=== PATIENT | female | born 1965 | race Two or more races ===

== ENCOUNTER 2024-12-09 02:13 | Inpatient (IN) | payer OTHER ==
[~2024-12-09] VITALS: Ht 127 cm; Wt 66.6 kg
--- NOTE | 2024-12-09 03:05 | DVH ---
CLINICAL INDICATION: fall TECHNIQUE: XY R FOOT 2 VIEW XRAY Comparison: None FINDINGS/IMPRESSION: : Mildly displaced obliquely oriented distal 5th metatarsal fracture. Soft tissue elements are grossly intact and normal in appearance.
--- NOTE | 2024-12-09 04:04 | ED.PDOC ---
History of Present Illness HPI Comments 59-year-old female came to the ER stating that she twisted her right foot about 3 hours prior to coming to the ER. Complaining of right foot pain unable to bear weight. Denies direct trauma. Denies any other symptoms. Chief Complaint: Lower Extremity Time Seen by MD: 02:19 Reviewed Notes: Nurses Notes, Medications, Allergies Allergies: Coded Allergies: NO KNOWN ALLERGIES (Unverified , 12/09/24) Information Source: Patient Mode of Arrival: Ambulatory Severity: Moderate Timing: Hours Duration: Since onset Past Medical History PAST MEDICAL HISTORY: Denies Surgical History: Denies all surgeries STORE MANAGER History: No Pertinent STORE MANAGER History Social History Smoker: Non-Smoker Alcohol: Denies ETOH Use Drugs: Denies Drug Use Constitutional: denies: chills, diaphoresis, fatigue, fever, malaise, sweats, weakness, others EENTM: denies: blurred vision, double vision, ear bleeding, ear discharge, ear drainage, ear pain, ear ringing, eye pain, eye redness, hearing loss, mouth pain, mouth swelling, nasal discharge, nose bleeding, nose congestion, nose pain, photophobia, tearing, throat pain, throat swelling, voice changes, others Respiratory: denies: cough, hemoptysis, orthopnea, SOB at rest, shortness of breath, SOB with excertion, stridor, wheezing, others Cardiovascular: denies: chest pain, dizzy spells, diaphoresis, Dyspnea on exertion, edema, irregular heart beat, left arm pain, lightheadedness, palpitations, PND, syncope, others Gastrointestinal: denies: abdomen distended, abdominal pain, blood streaked bowels, constipated, diarrhea, dysphagia, difficulty swallowing, hematemesis, melena, nausea, poor appetite, poor fluid intake, rectal bleeding, rectal pain, vomiting, others Genitourinary: denies: abnormal vagina bleeding, burning, dyspareunia, dysuria, flank pain, frequency, hematuria, incontinence, pain, , vagina discharge, urgency, others Neurological: denies: dizziness, fainting, headache, left sided numbness, left sided weakness, numbness, paresthesia, pre-existing deficit, right sided numbness, right sided weakness, seizure, speech problems, tingling, tremors, we akness, others Musculoskeletal: reports: joint pain (Right foot); denies: back pain, gout, joint swelling, muscle pain, muscle stiffness, neck pain, others Integumetry: denies: bruises, change in color, change in hair/nails, dryness, laceration, lesions, lumps, rash, wounds, others Allergic/Immunocompromised: denies: Difficulty Healing, Frequent Infections, Hives, Itching, others Hematologic/Lymphatic: denies: anemia, blood clots, easy bleeding, easy bruising, swollen glands, others Endocrine: denies: excessive hunger, excessive sweating, excessive thirst, excessive urination, flushing, intolerance to cold, intolerance to heat, u nexplained weight gain, unexplained weight loss, others Psychiatric: denies: anxiety, bipolar disorder, depression, hopeless, panic disorder, schizophrenia, sleepless, suicidal, others Physical Exam General Appearance: Moderate Distress HEENT: Normal ENT Inspection, Pharynx Normal, TMs Normal Neck: Full Range of Motion, Non-Tender, Normal, Normal Inspection Respiratory: Chest Non-Tender, Lungs Clear, No Accessory Muscle Use, No Respiratory Distress, Normal Breath Sounds Cardiovascular: No Edema, No JVD, No Murmur, No Gallop, Normal Peripheral Pulses, Regular Rate/Rhythm Breast Exam: Deferred Gastrointestinal: No Organomegaly, Non Tender, No Pulsatile Mass, Normal Bowel Sounds, Soft Genitalia: Deferred Pelvic: Deferred Rectal: Deferred Extremities: Tender (right foot) Musculoskeletal : Apperance: Normal Neurologic: Alert, No Motor Deficits, No Sensory Deficits Cerebellar Function: NOT DONE Reflexes: NOT DONE Skin: Dry, Normal Color, Warm Peripheral Pulses: 3+ Radial (R), 3+ Radial (L) Lymphatic: No Adenopathy Was a procedure done? Was a procedure done?: No Differential Dx Considerations may include: fracture muscle strain X-Ray, Labs, Meds, VS Vital Signs Date Time Temp Pulse Resp B/P (MAP) Pulse Ox O2 Delivery O2 Flow Rate FiO2 12/09/24 02:16 98.1 105 18 113/74 96 98.1 Patient alert. Complaining of right foot pain. Swelling of the right foot on examination. Vitals stable. Answering questions. Good pulses. Good skin color. X-ray of the right foot does show fracture. Placed a splint. Was given prescription of [place]. Explained to the patient. Was told to follow up with her primary care physician. Was told to come back if there is any problem. Time of 1ST Reevaluation: 04:02 Reevaluation 1ST: Unchanged Patient Education/Counseling: Diagnosis, Treatment, Prognosis, Need For Follow Up Family Education/Counseling: No Family Present SEPSIS Sepsis Screen Date sepsis recognized/suspect: Dec 09, 2024 Time Sepsis recognized/suspect: 215 Recent Procedure: No On Antibiotic Therapy: No Respiratory Rate >20: No Heart Rate >90: No Temp<36 C (96.8 F) or >38.3 C: No SBP <90 or MAP <65 mmHG: No New Acute Mental Status Change: No Is the patient on CPAP, BIPAP,: No Physician Orders R Foot 2 View Xray (12/09/24 02:29) Vital Signs Date Time Temp Pulse Resp B/P (MAP) Pulse Ox O2 Delivery O2 Flow Rate FiO2 12/09/24 02:16 98.1 105 18 113/74 96 98.1 Departure 1 Departure Time of Disposition: 04:04 Impression: Primary Impression: Foot fracture, right Qualified Codes: S92.901A - Unspecified fracture of right foot, initial encounter for closed fracture Disposition: 01 HOME / SELF CARE / HOMELESS Condition: Good e-Prescriptions Hydrocodone-Acetaminophen (Hydrocodone Bitartrate/AC 5-325 mg) 1 Tab Tab 1 TAB PO DAILY for 5 Days, #5 TAB Prov: SLIME ZIMMER MD 12/09/24 Discharged With: Self Critical Care Note Critical Care Time?: No Stability Stability form required: No Heart Score Heart Score: Heart Score Response (Comments) Value History N/A 0 EKG N/A 0 Age N/A 0 Risk Factors N/A 0 Troponin N/A 0 Total 0 SLIME ZIMMER MD Dec 09, 2024 04:04
[2024-12-09] MEDS ORDERED: HYDR-4902 PO (04:06)
[2024-12-09] MEDS: HYDROcodone-ACET 10/325MG TAB PO ONE (04:45)
--- NOTE | 2024-12-09 06:17 | DVHHPRES ---
History of Present Illness Resident Creating Document: JOSH NAVARRO RESDIENT History of Present Illness This is a 59-year-old female with past medical history of diabetes type 2 came to the hospital due to intractable right foot pain. She also reports of nausea. Per patient, she slipped while she was walking and subsequently developed pain at the level of 2 L fingers of right foot. He denies dizziness, blurry vision, chest pain, shortness of breaths, or fall/loss of conscious. PMHx: Diabetes type 2 PSHx: C-sections Social history: Denies smoking, or any other drug use Home medication: Metformin, lisinopril, glipizide, (patient use to more drugs, does not remember the name) Allergic history: No known allergy Patient seen and examined at bedside. Patient is complaining of intractable right foot pain. Review of Systems Allergies: Coded Allergies: NO KNOWN ALLERGIES (Unverified , 12/09/24) Exam Vital Signs Vital Signs Date Time Temp Pulse Resp B/P (MAP) Pulse Ox O2 Delivery O2 Flow Rate FiO2 12/09/24 04:48 87 16 96 Room Air 12/09/24 04:48 98.2 115/78 (90) 98.2 Exam General Appearance: Alert, Oriented X3, Cooperative, No acute distress HEENT: Atraumatic, PERRLA, EOMI, Mucous membrane moist/pink Respiratory: Clear to auscultation, Normal air movement Cardiovascular: Regular rate, Normal S1, Normal S2, No murmurs, no chest wall tenderness Abdominal: Normal bowel sounds, Soft, No tenderness, No hepatospenomegaly, No masses Extremities: Right foot at the level of lateral fingers are swollen and tender, distal pass and sensations are intact Skin: No rashes, No breakdown, No significant lesion Neuro: Normal gait, Normal speech, Strength at 5/5 X4 ext, Normal tone, Sensation intact, Cranial nerves 3-12 NL, Reflexes 2+ Psych/Mental Status: Mental status NL, Mood NL SEPSIS Sepsis Screen Date sepsis recognized/suspect: Dec 09, 2024 Time Sepsis recognized/suspect: 215 Recent Procedure: No On Antibiotic Therapy: No Respiratory Rate >20: No Heart Rate >90: No Temp<36 C (96.8 F) or >38.3 C: No SBP <90 or MAP <65 mmHG: No New Acute Mental Status Change: No Is the patient on CPAP, BIPAP,: No Physician Orders R Foot 2 View Xray (12/09/24 02:29) Splints (12/09/24 ) Admit (12/09/24 05:56) Code Status (12/09/24 05:56) Vital Signs .PER UNIT PROTOCOL (12/09/24 05:56) Review Orders With Adm. (12/09/24 05:56) Notify Md Of Changes From Base (12/09/24 05:56) Advance Directive (12/09/24 05:56) Patient Condition (12/09/24 05:56) Allergies (12/09/24 05:56) Vital Signs Date Time Temp Pulse Resp B/P (MAP) Pulse Ox O2 Delivery O2 Flow Rate FiO2 12/09/24 04:48 87 16 96 Room Air 12/09/24 04:48 98.2 87 16 115/78 (90) 96 98.2 12/09/24 02:16 98.1 105 18 113/74 96 98.1 Medications Medications Dose Ordered Sig/Yessica Route Start Time Stop Time Status Last Admin Dose Admin Acetaminophen/ Hydrocodone Bitart 1 tab ONCE ONCE PO 12/09/24 02:30 12/09/24 02:31 DC 12/09/24 04:45 1 TAB Assessment/Plan Assessment/Plan Right foot intractable pain due to distal 5th metatarsal fracture Diabetes type 2 Morbid obesity X-ray shows, mildly displaced obliquely oriented distal 5th metatarsal fracture Plan/recommendation Pain control, acetaminophen on IV ketorolac Zofran for nausea and vomiting Insulin Check Hb A1c consulted orthopedics DIET: diabetic diet GI PROPHYLAXIS:: Protonix BOWEL REGIMEN: Colace CODE STATUS: Goal of care discussed for more than 18 minutes, full code DISPOSITION: Med/surge Patient's status and plan discussed with the patient. Case discussed with Dr. Ashley. Plan discussed with: Patient, Other (RN) My Orders Orders - JOSH NAVARRO RESDIZACHARY Procedure Category Date Status Time Admit ADMIT 12/09/24 Transmitted 05:56 Code Status CODE 12/09/24 Transmitted 05:56 Vital Signs WARD 12/09/24 In Process 05:56 Review Orders With WARD 12/09/24 In Process Adm 05:56 Notify Of Changes WARD 8/10/25 In Process From Base 05:56 Advance Directive WARD 12/09/24 In Process 05:56 Patient Condition ORDERS 12/09/24 Transmitted 05:56 Allergies WARD 12/09/24 In Process 05:56 Date of Service: Dec 09, 2024 Billing Provider: MARIA ESTHER ASHLEY MD Common Visit Codes: [id number] INP/OBS CARE (HIGH) ROMARIOROSEVIKTORIA MARTINEZFRACISCO RESDIZACHARY Dec 09, 2024 06:17 MARIA ESTHER ASHLEY MD Dec 11, 2024 07:53
[2024-12-09 07:37] LABS: INR 1.0 (0.9-1.15); Prothrombin Time 10.6 sec (9.3-11.8)
[2024-12-09] MEDS: KETOROLAC TROMETH 30 MG/ML 1ML VIAL IV ONE (08:24)
[2024-12-09] MEDS: LISINOPRIL 5 MG TAB PO SCH (10:00)
--- NOTE | 2024-12-09 12:26 | DVHPN2 ---
Reviewed: Care Plan, H&P, Labs, Medications, Previous Orders, Radiology Changes from previous H/P or p: No Changes Objective Vitals Vital Signs Date Time Temp Pulse Resp B/P (MAP) Pulse Ox O2 Delivery O2 Flow Rate FiO2 12/09/24 10:00 106/60 12/09/24 07:53 97.6 78 16 96 97.6 12/09/24 04:48 Room Air Medications Current Medications Medications Dose Ordered Sig/Yessica Route Start Time Stop Time Status Last Admin Dose Admin Ketorolac Tromethamine 15 mg Q6HPRN PRN IV 12/09/24 12:00 12/14/24 11:59 Lisinopril 2.5 mg DAILY PO 12/09/24 10:00 Acetaminophen 650 mg Q6HR PO 12/09/24 12:00 Laboratory Results Coagulation Test 12/09/24 06:54 Prothrombin Time 10.6 sec (9.3-11.8) Prothrombin Time INR 1.00 (0.9-1.15) HgA1c, TSH Test 12/09/24 06:54 Hemoglobin A1c 10.2 % A1C (<5.7) H Labs and/or images reviewed: Labs reviewed by me, Image(s) reviewed by me Assessment/Plan Assessment/Plan Acute right 5th metatarsal fractures secondary to trauma, consult for orthopedic Dr. Tapia Diabetes type 2: Insulin sliding scale Time spent 40 minutes Plan discussed with: Patient Date of Service: Dec 09, 2024 Billing Provider: JESSE HEBERT MD Common Visit Codes: [id number] INP/OBS CARE(HIGH) JESSE HEBERT MD Dec 09, 2024 12:26
[2024-12-09] MEDS: ACETAMINOPHEN 325 MG TAB PO SCH (12:51)
[2024-12-09 20:23] LABS: Urine Protein, UAD Negative (Negative)
[2024-12-09 20:26] LABS: Amphetamine Screen, Urine Neg (NEGATIVE); Barbiturate Scree,Urine Neg (NEGATIVE); Benzodiazephine Screen, Urine Neg (NEGATIVE); Cocaine Screen, Urine Neg (NEGATIVE); Opiate Scree,Urine Neg (NEGATIVE); Phencyclidine Screen, Urine Neg (NEGATIVE)
[2024-12-09 20:27] LABS: Cannabinoid Screen, Urine Neg (NEGATIVE)
[2024-12-09 22:13] VITALS: PULSE 69; RESP 18; O2SAT 95
[2024-12-09] MEDS: KETOROLAC TROMETH 30 MG/ML 1ML VIAL IV PRN (22:38)
[2024-12-09] MEDS ORDERED: LISI-275 PO (23:29)
[2024-12-09] MEDS ORDERED: METF-371 PO (23:29)
[2024-12-09] MEDS ORDERED: GLIP10TA9 PO (23:29)
[2024-12-10] VITALS (8 sets, daily range): BP systolic 116–164; BP diastolic 67–94; PULSE 60–72; RESP 16–18; TEMP 97.8–98.3; O2SAT 92–96
[2024-12-10] MEDS ORDERED: DEXTROSE (50%) 50ML SYRG IV PRN (03:15)
[2024-12-10] MEDS: ACCU-CHEK COMFORT CURVE STRIP VI SCH (05:18)
[2024-12-10] MEDS: InsuLIN REG 1unit/0.01ml Soln (100units/ml) SC SCH (05:18)
[2024-12-10] MEDS: INSULIN LANTUS (GLARGINE) 1 /0.01ml (100units/ml) SC ONE (06:39)
--- NOTE | 2024-12-10 09:05 | DVHPNRES ---
Progress Note Subjective Review of Systems Ever Onofre is a 59-year-old female with past medical history of Previous hospitalization: PMHx: PSHx: Family history: Social history: Home medication: glipizide, lisinopril, metformin, fenofibrate, pioglitazone, atorvastatin Allergic history: ROS Constitutional: Denies weight loss, fever and chills. HEENT: Denies changes in vision and hearing. Respiratory: Denies shortness of breath and cough Cardiovascular: Denies chest discomfort or palpitations GI: Denies abdominal pain, nausea, vomiting and diarrhea. : Denies dysuria and urinary frequency. Musculoskeletal: Denies myalgias and joint pain Skin: Denies rash and pruritus. Neurological: Denies dizziness, headache, vision or hearing problems She was examined at bedside today. Vitals WNL. Objective vital signs Vital Sign Date Time Temp Pulse Resp B/P (MAP) Pulse Ox O2 Delivery O2 Flow Rate FiO2 12/10/24 05:00 98.1 60 16 126/81 (96) 92 98.1 12/09/24 22:13 Room Air* 0 21 Total Intake and Output 12/09/24 12/09/24 12/10/24 15:00 23:00 07:00 Intake Total 200 ml Balance 200 ml medications Current Medications Medications Dose Ordered Sig/Yessica Route Start Time Stop Time Status Last Admin Dose Admin Ketorolac Tromethamine 15 mg Q6HPRN PRN IV 12/09/24 12:00 12/14/24 11:59 12/10/24 05:23 15 MG Lisinopril 2.5 mg DAILY PO 12/09/24 10:00 Acetaminophen 650 mg Q6HR PO 12/09/24 12:00 12/09/24 18:58 650 MG Diagnostic Test (Pha) 1 strip Q6HR 12/10/24 06:00 12/10/24 05:18 1 STRIP Insulin Human Regular Q6HR SC 12/10/24 06:00 12/10/24 05:18 9 UNITS Dextrose 50 ml UD PRN IV 12/10/24 03:15 Examination Physical examination General: Patient alert and oriented in person, place and time. Patient following commands. HEENT: Normocephalic, atraumatic, moist mucous membranes Respiratory/pulmonary: Clear lungs bilaterally, vesicular murmurs present in almost all lung cadena, no associated crackles or wheezes. Cardiovascular: Normal heart sounds S1 and S2 with no associated murmurs Abdomen: Abdomen nondistended, there is no pain to palpation in any of the abdominal quadrants, no palpable masses. Extremities: There is no peripheral edema present at the lower extremities. Peripheral Pulses: 3+ Radial (R). 3+ Radial (L). 3+ Dorsalis pedis (R). 3+ Dorsalis pedis(L) Skin: No rashes or pruritus, there is no sacral edema present at this time. Neurological: Intact cranial nerves with no focal neurologic deficits Problem List/Assessment/Plan Problem List/Assessment/Plan X-ray foot shows: Mildly displaced obliquely oriented distal 5th metatarsal fracture. Soft tissue elements are grossly intact and normal in appearance. Pain management Diabetes mellitus, uncontrolled A1c 10.2 Sliding scale insulin ? Restart Atorvastatin Essential hypertension Continue lisinopril DIET: Regular Liquid CODE STATUS: Goals of care discussed with patient at bedside for more than 25 minutes. Full code DISPOSITION: Med/surge Patient's status and plan discussed with the patient. Case discussed with Dr. Barroso. My Orders My Orders Orders - ANA REYES RESIDENT Procedure Category Date Status Time Complete Blood Count LAB 12/10/24 Transmitted 09:04 Comprehensive LAB 12/10/24 Transmitted Metabolic Panel 09:04 ANA REYES Dec 10, 2024 09:05
[2024-12-10 10:28] LABS: Hematocrit 33.3 % (36.0-46.0); Hemoglobin 10.9 g/dL (12.2-16.2); Mean Corpuscular Hemoglobin 26.6 pg (28.0-32.0); Mean Corpuscular Volume 81.4 fL (80.0-100.0); Nucleated Red Blood Cells % 0.1 %
[2024-12-10 10:50] LABS: Alanine Aminotransferase 18 U/L (7-40); Alkaline Phosphatase 75 U/L (46-116); Anion Gap 8 (5-15); BUN/Creatinine Ratio 14.6 (10.0-20.0); Blood Urea Nitrogen 14 mg/dL (9-23); Calcium 9.2 mg/dL (8.7-10.4); Carbon Dioxide 29 mmol/L (20-31); Chloride 101 mmol/L (98-107); Potassium 4.1 mmol/L (3.5-5.1); Sodium 138 mmol/L (136-145); Total Protein 6.5 g/dL (5.7-8.2)
[2024-12-10 10:51] LABS: Albumin 4.2 g/dL (3.2-4.8); Bilirubin, Total 0.4 mg/dL (0.2-1.0)
[2024-12-10 10:54] LABS: Glucose 361 mg/dL (74-106)
--- NOTE | 2024-12-10 12:47 | DVHPN2 ---
Reviewed: Care Plan, H&P, Labs, Medications, Previous Orders, Radiology Changes from previous H/P or p: No Changes Objective Vitals Vital Signs Date Time Temp Pulse Resp B/P (MAP) Pulse Ox O2 Delivery O2 Flow Rate FiO2 12/10/24 09:06 156/102 12/10/24 09:00 98.3 72 18 94 98.3 12/10/24 08:00 Room Air* 0 21 Intake/Output Intake and Output 12/10/24 07:00 Intake Total 200 ml Balance 200 ml Intake Oral 200 ml # Voids 1 Medications Current Medications Medications Dose Ordered Sig/Yessica Route Start Time Stop Time Status Last Admin Dose Admin Ketorolac Tromethamine 15 mg Q6HPRN PRN IV 12/09/24 12:00 12/14/24 11:59 12/10/24 05:23 15 MG Lisinopril 2.5 mg DAILY PO 12/09/24 10:00 12/10/24 09:06 2.5 MG Acetaminophen 650 mg Q6HR PO 12/09/24 12:00 12/10/24 11:31 650 MG Diagnostic Test (Pha) 1 strip Q6HR 12/10/24 06:00 12/10/24 11:45 1 STRIP Insulin Human Regular Q6HR SC 12/10/24 06:00 12/10/24 11:48 12 UNITS Dextrose 50 ml UD PRN IV 12/10/24 03:15 Laboratory Results Laboratory Tests 12/10/24 10:18 Chemistry Test 12/10/24 10:18 Albumin 4.2 g/dL (3.2-4.8) Calcium Level 9.2 mg/dL (8.7-10.4) Total Protein 6.5 g/dL (5.7-8.2) LFT Test 12/10/24 10:18 Alanine Aminotransferase (ALT) 18 U/L (7-40) Alkaline Phosphatase 75 U/L (46-116) Aspartate Amino Transferase (AST) 21 U/L (13-40) Total Bilirubin 0.4 mg/dL (0.2-1.0) Urinalysis Test 12/09/24 18:30 Urine Color Light-yellow (Yellow) Urine Clarity Clear (Clear) Urine pH 5.5 (5.0-9.0) Urine Specific [place] 1.035 (1.001-1.035) Urine Protein Negative (Negative) Urine Ketones Negative (Negative) Urine Blood Negative /uL (Negative) Urine Nitrite Negative (Negative) Urine Bilirubin Negative (Negative) Urine Urobilinogen Normal mg/dL (Negative) Urine Leukocyte Esterase 3+ /uL (Negative) Urine Glucose 4+ mg/dL (Normal) H Labs and/or images reviewed: Labs reviewed by me, Image(s) reviewed by me Assessment/Plan Assessment/Plan Acute right 5th metatarsal fractures secondary to trauma, consult for orthopedic Dr. Tapia pending Diabetes type 2: Insulin sliding scale Time spent 40 minutes Plan discussed with: Patient Date of Service: Dec 10, 2024 Billing Provider: JESSE HEBERT MD Common Visit Codes: [id number] INP/OBS CARE(HIGH) JESSE HEBERT MD Dec 10, 2024 12:47
--- NOTE | 2024-12-10 21:05 | DVHINCON2 ---
Consult Note Consult Consult Note Reason for Consult: Evaluation of right foot pain and radiographic finding of distal fifth metatarsal fracture right foot. --- History of Present Illness: Ms. Jemima Curtis is a 59 -year-old female admitted for right foot pain after foot inversion few days ago . Today deneis any associated ankle pain, numbness, or tingling. No pain out of proportion. During interview patient in no distress. No LOC, Nausea, vomiting, Chest pain, SOB or other joint pain or concerns reported --- past medical hx DM2 --- Review of Systems: Constitutional: Denies fever, chills Musculoskeletal: Right foot pain, swelling; denies ankle pain Neurovascular: Denies numbness or tingling --- Physical Exam: General: Alert, oriented 3, in no acute distress. Right Foot/Ankle: Swelling localized to the lateral aspect of the right forefoot. Tenderness to palpation at the distal fifth metatarsal (head-neck region). No tenderness at ankle joint; ankle range of motion full and pain-free. Neurovascular: Sensation intact to light touch; capillary refill <2 seconds; dorsalis pedis and posterior tibial pulses palpable. Skin: No open lesions, abrasions, or ecchymosis noted over fracture site. --- Imaging: Right foot X-ray: Mildly displaced obliquely oriented distal 5th metatarsal fracture.Soft tissue elements are grossly intact and normal in appearance.. No evidence of intra-articular extension or other acute fracture. --- Assessment: 1. Minimally displaced distal fifth metatarsal fracture, right foot. 2. No evidence of ankle involvement or neurovascular compromise. --- Plan: Immobilization with a hard-sole shoe. Weight-bearing as tolerated with use of hard-sole shoe. Outpatient orthopedic follow-up in 2 weeks for repeat examination and imaging. Pain control as per primary team. Patient educated on monitoring for increased swelling, redness, or neurovascular changes; instructed to elevate and ice for swelling. Case and imaging reviewed with Dr. Tapia, who agrees with the above plan. Plan discussed with: Patient Visit Coding Surgery Date of Service if different f: Dec 10, 2024 Billing Provider: HOLGER KEBEDE Surgery Visit Codes: [id number] - INP CONSULT <55 MIN HOLGER KEBEDE Dec 10, 2024 21:05
[2024-12-11 01:00] VITALS: BP 134/84; PULSE 62; RESP 18; TEMP 97.5; O2SAT 97
[2024-12-11 05:00] VITALS: BP 134/95; PULSE 58; RESP 17; TEMP 97.9; O2SAT 96
[2024-12-11 08:00] VITALS: PULSE 75; RESP 17; O2SAT 93
[2024-12-11 09:00] VITALS: BP 120/79; PULSE 75; RESP 16; TEMP 98.1; O2SAT 92
--- NOTE | 2024-12-11 11:39 | DVHPN2 ---
Reviewed: Care Plan, H&P, Labs, Medications, Previous Orders, Radiology Changes from previous H/P or p: No Changes Objective Vitals Vital Signs Date Time Temp Pulse Resp B/P (MAP) Pulse Ox O2 Delivery O2 Flow Rate FiO2 12/11/24 09:48 120/79 12/11/24 09:00 98.1 75 16 92 98.1 12/11/24 08:00 Room Air* 0 21 Intake/Output Intake and Output 12/11/24 07:00 Intake Total 1740 ml Balance 1740 ml Intake Oral 1740 ml # Voids 7 # Bowel Movements 2 Medications Current Medications Medications Dose Ordered Sig/Yessica Route Start Time Stop Time Status Last Admin Dose Admin Ketorolac Tromethamine 15 mg Q6HPRN PRN IV 12/09/24 12:00 12/14/24 11:59 12/10/24 05:23 15 MG Lisinopril 2.5 mg DAILY PO 12/09/24 10:00 12/11/24 09:48 2.5 MG Acetaminophen 650 mg Q6HR PO 12/09/24 12:00 12/11/24 05:35 650 MG Diagnostic Test (Pha) 1 strip Q6HR 12/10/24 06:00 12/11/24 05:35 1 STRIP Insulin Human Regular Q6HR SC 12/10/24 06:00 12/11/24 05:46 6 UNITS Dextrose 50 ml UD PRN IV 12/10/24 03:15 Laboratory Results Laboratory Tests 12/10/24 10:18 Urinalysis Test 12/09/24 18:30 Urine Color Light-yellow (Yellow) Urine Clarity Clear (Clear) Urine pH 5.5 (5.0-9.0) Urine Specific [place] 1.035 (1.001-1.035) Urine Protein Negative (Negative) Urine Ketones Negative (Negative) Urine Blood Negative /uL (Negative) Urine Nitrite Negative (Negative) Urine Bilirubin Negative (Negative) Urine Urobilinogen Normal mg/dL (Negative) Urine Leukocyte Esterase 3+ /uL (Negative) Urine Glucose 4+ mg/dL (Normal) H Labs and/or images reviewed: Labs reviewed by me, Image(s) reviewed by me Assessment/Plan Assessment/Plan Acute right 5th metatarsal fractures secondary to trauma, consult for orthopedic Dr. Burnett advised hard sole shoe pain medication follow up in two weeks in ortho Clinic Diabetes type 2: Insulin sliding scale Time spent 40 minutes Plan discussed with: Patient Date of Service: Dec 11, 2024 Billing Provider: JESSE HEBERT MD Common Visit Codes: [id number] INP/OBS CARE(HIGH) JESSE HEBERT MD Dec 11, 2024 11:39
[2024-12-11] MEDS ORDERED: HYDR-4902 PO (11:41)
--- NOTE | 2024-12-11 11:45 | DVHDS2 ---
Discharge Summary Date of Admission Dec 09, 2024 at 05:56 Date of Discharge: Dec 11, 2024 Admitting Diagnosis Fracture right 5th metatarsal Wounds: Fracture right 5th metatarsal Labs/Diagnostic Data: Laboratory Results Test 12/11/24 05:40 12/10/24 10:18 12/09/24 18:30 12/09/24 06:54 POC Glucose 236 mg/dl (70-106) White Blood Count 6.5 10^3/uL (4.4-10.8) Red Blood Count 4.09 10^6/uL (4.0-5.20) Hemoglobin 10.9 g/dL (12.2-16.2) Hematocrit 33.3 % (36.0-46.0) Mean Corpuscular Volume 81.4 fL (80.0-100.0) Mean Corpuscular Hemoglobin 26.6 pg (28.0-32.0) Mean Corpuscular Hemoglobin Concent 32.7 g/dL (32.0-36.0) Red Cell Distribution Width 16.0 % (11.8-14.3) Platelet Count 320 10^3/uL (140-450) Mean Platelet Volume 8.4 fL (6.9-10.8) Neutrophils (%) (Auto) 54.4 % (37.0-80.0) Lymphocytes (%) (Auto) 32.3 % (10.0-50.0) Monocytes (%) (Auto) 8.1 % (0.0-12.0) Eosinophils (%) (Auto) 4.7 % (0.0-7.0) Basophils (%) (Auto) 0.5 % (0.0-2.0) Neutrophils # (Auto) 3.5 10 ^3/uL (1.6-8.6) Lymphocytes # (Auto) 2.1 10 ^3/uL (0.4-5.4) Monocytes # (Auto) 0.5 10 ^3/uL (0-1.3) Eosinophils # (Auto) 0.3 10 ^3/uL (0-0.8) Basophils # (Auto) 0 10 ^3/uL (0-0.2) Nucleated Red Blood Cells 0.1 % Sodium Level 138 mmol/L (136-145) Potassium Level 4.1 mmol/L (3.5-5.1) Chloride Level 101 mmol/L (98-107) Carbon Dioxide Level 29 mmol/L (20-31) Anion Gap 8 (5-15) Blood Urea Nitrogen 14 mg/dL (9-23) Creatinine 0.96 mg/dL (0.550-1.02) Glomerular Filtration Rate Calc 69 mL/min (>90) BUN/Creatinine Ratio 14.6 (10.0-20.0) Serum Glucose 361 mg/dL (74-106) Calcium Level 9.2 mg/dL (8.7-10.4) Total Bilirubin 0.4 mg/dL (0.2-1.0) Aspartate Amino Transferase (AST) 21 U/L (13-40) Alanine Aminotransferase (ALT) 18 U/L (7-40) Alkaline Phosphatase 75 U/L (46-116) Total Protein 6.5 g/dL (5.7-8.2) Albumin 4.2 g/dL (3.2-4.8) Urine Color Light-yellow (Yellow) Urine Clarity Clear (Clear) Urine pH 5.5 (5.0-9.0) Urine Specific [place] 1.035 (1.001-1.035) Urine Protein Negative (Negative) Urine Ketones Negative (Negative) Urine Blood Negative /uL (Negative) Urine Nitrite Negative (Negative) Urine Bilirubin Negative (Negative) Urine Urobilinogen Normal mg/dL (Negative) Urine Leukocyte Esterase 3+ /uL (Negative) Urine Glucose 4+ mg/dL (Normal) Urine Opiates Screen Neg (NEGATIVE) Urine Fentanyl Screen Neg (NEGATIVE) Urine Barbiturates Screen Neg (NEGATIVE) Urine Phencyclidine Screen Neg (NEGATIVE) Urine Amphetamines Screen Neg (NEGATIVE) Urine Benzodiazepines Screen Neg (NEGATIVE) Urine Cocaine Screen Neg (NEGATIVE) Urine Cannabinoids Screen Neg (NEGATIVE) Prothrombin Time 10.6 sec (9.3-11.8) Prothrombin Time INR 1.00 (0.9-1.15) Hemoglobin A1c 10.2 % A1C (<5.7) Other Laboratory Tests 12/10/24 10:18 Brief Hx & Hospital Course: 59-year-old female with a history of diabetes accidentally to stage her right ankle. Admitted for right 5th metatarsal fracture treated with the pain medications seen by ortho advised hard-sole shoe and follow up in two weeks Consults/Reason for consult Orthopedic Operations or Procedures none Condition at Discharge: Fair Final Diagnosis/Problems List Acute right 5th metatarsal fractures secondary to trauma, consult for orthopedic Dr. Burnett advised hard sole shoe pain medication follow up in two weeks in ortho Clinic Diabetes type 2: Insulin sliding scale Discharge Disposition: Home Discharge Instruct/Medications Diet: Consistent carbohydrate Activity: Light activity Follow Up/Referral: Follow up with the ortho clinic in two weeks Medications: [place] Transmitted to pharmacy Scheduled Hydrocodone-Acetaminophen (Hydrocodone Bitartrate/AC 5-325 mg), 1 TAB PO DAILY Scheduled PRN Hydrocodone-Acetaminophen (Hydrocodone Bitartrate/AC 5-325 mg), 1 TAB PO QID PRN Miscellaneous Medications Glipizide (Glipizide), 10 MG PO, (Reported) Lisinopril (Lisinopril), 5 MG PO, (Reported) Metformin Hydrochloride (Metformin Hcl), 1,000 MG PO, (Reported) 35 (Time taken for discharge summary 35 minutes) Discharge Statement: "Patient was advised to return to the ER or call 911 if any headaches, dizziness, shortness of breath, chest pain, abdominal pain, bleeding, fevers, or worsening of medical condition. Patient was counseled about treatment plan, medications, possible side effects, patientverbalized understanding. All questions were answered to the best of my ability. This discharge took greater then 30 minutes in planning, reviewing documentation, counseling the patient, and discussing with other team members." ASSESSMENT ASSESSMENT Hospital Course Uneventful Assessment Acute right 5th metatarsal fractures secondary to trauma, consult for orthopedic Dr. Burnett advised hard sole shoe pain medication follow up in two weeks in ortho Clinic Diabetes type 2: Insulin sliding scale Date of Service: Dec 11, 2024 Billing Provider: JESSE HEBERT MD Common Visit Codes: 79023-XKZ/OBS DISCH DAY >30min JESSE HEBERT MD Dec 11, 2024 11:45
[2024-12-11 13:00] VITALS: BP 145/103; PULSE 60; RESP 16; TEMP 97.8; O2SAT 95
[2024-12-11 13:04] VITALS: BP 120/79; PULSE 64; RESP 18; TEMP 97.8; O2SAT 95
== END 2024-12-11 13:30 | disposition home or self-care (01) | DRG 563 ==
LOC: ER 02:13 → OVERFLOW 05:56 → WEST WING 22:00
PROVIDERS: ADMIT Family Medicine; ATTEND Family Medicine
DX: S92.351A Displaced fracture of fifth metatarsal bone, right foot, initial encounter for closed fracture (principal); Z68.41 Body mass index [BMI] 40.0-44.9, adult; E11.9 Type 2 diabetes mellitus without complications; E66.01 Morbid (severe) obesity due to excess calories; Z79.899 Other long term (current) drug therapy; X58.XXXA Exposure to other specified factors, initial encounter; Y93.89 Activity, other specified; Y92.89 Other specified places as the place of occurrence of the external cause; Y99.8 Other external cause status
CPT/HCPCS: 36415; 73620; 80053; 80307; 81003; 82962; 83036; 85025; 85610; 96374; G0378; J1815; J1885